=== PATIENT | female | born 1960 | race Caucasian/White ===

== ENCOUNTER 2020-09-10 17:07 | Inpatient (IN) | payer OTHER ==
[~2020-09-10] VITALS: Ht 160 cm; Wt 48.9 kg
[2020-09-10 17:11] VITALS: BP 144/102
[2020-09-10 17:51] LABS: BASOPHILS % (AUTO) 0.8 % (0.0-5.0); EOSINOPHILS % (AUTO) 3.2 % (0.0-8.0); HEMATOCRIT 48.6 % (36-48); LYMPHOCYTES % (AUTO) 21.8 % (21.0-51.0); MEAN CORPUSCULAR HEMOGLOBIN 30.6 pg (27.0-33.0); MEAN CORPUSCULAR HGB CONC 34.4 g/dL (32.0-36.0); MONOCYTES % (AUTO) 10.9 % (3.0-13.0); PLATELET COUNT (AUTO) 136 K/uL (130-400); RED BLOOD CELL COUNT(AUTO) 5.46 MIL/uL (4.00-5.50); RED CELL DISTRIBUTION WIDTH 12.2 % (11.0-15.5)
[2020-09-10 18:01] LABS: INR 1.15 (0.85-1.15); PROTHROMBIN TIME 12.4 SEC (9.6-11.6)
[2020-09-10 18:03] LABS: PARTIAL THROMBOPLASTIN TIME 24.2 SEC (26.3-35.5)
[2020-09-10 18:08] LABS: CREATININE 1.1 mg/dL (0.5-1.5); POTASSIUM 3.9 mmol/L (3.5-5.1)
[2020-09-10 18:26] VITALS: BP 150/100
[2020-09-10 18:26] LABS: B-TYPE NATRIURETIC PEPTIDE 1560 pg/mL (0-100)
[2020-09-10 18:36] LABS: ALBUMIN 3.6 g/dL (3.5-5.0); BILIRUBIN,TOTAL 0.8 mg/dL (0.2-1.0); TOTAL PROTEIN, SERUM 6.6 g/dL (6.0-8.3)
[2020-09-10 18:38] LABS: TROPONIN I 4.08 ng/mL (0.00-0.06)
[2020-09-10 19:00] VITALS: BP 150/102
[2020-09-10] MEDS ORDERED: ASPIRIN 325MG EC TAB 325 MG TABLET.DR PO SCH (19:00)
[2020-09-10 19:30] VITALS: BP 152/99
[2020-09-10] MEDS ORDERED: NITROGLYCERIN 1GM/1 INCH PACKET TD SCH (19:30)
[2020-09-10] MEDS ORDERED: SODIUM BICARB 50MEQ 50ML VIAL 50 ML ONE (19:37)
[2020-09-10] MEDS ORDERED: NICARDIPINE HCL 25 MG/10 ML ML IV ONE (19:37)
[2020-09-10] MEDS ORDERED: LIDOCAINE PF 100MG/5ML (2%) SYRINGE 5ML ONE (19:37)
[2020-09-10] MEDS ORDERED: ATROPINE SULFATE 0.1 MG/ML 10 ML SYG IVP ONE (19:37)
[2020-09-10] MEDS ORDERED: HEPARIN SODIUM 1000UNIT/ML 10ML VIAL ONE (19:38)
[2020-09-10] MEDS ORDERED: MIDAZOLAM HCL 1 MG/ML 2ML VIAL ONE (19:38)
[2020-09-10] MEDS ORDERED: IOHEXOL-350 50ML VIAL IV ONE (19:38)
[2020-09-10] MEDS ORDERED: IOHEXOL 350 MG/ML 100ML INFUS..BTL IV ONE (19:38)
[2020-09-10] MEDS ORDERED: NITROGLYCERIN 2 MG/VIAL VIAL IV ONE (19:38)
[2020-09-10] MEDS ORDERED: FENTANYL CITRATE PF 50 MCG/1 ML 2ML VIAL ONE (19:38)
[2020-09-10] MEDS ORDERED: DOPAMINE HCL 400 MG/D5%-WATER 250 ML IV ONE (19:38)
[2020-09-10] MEDS ORDERED: LIDOCAINE HCL 400MG/20ML VIAL ONE (19:38)
[2020-09-10] MEDS ORDERED: HEPARIN 25000 UNITS/250 ML D5W 250 ML IV PRN (20:00)
[2020-09-10] MEDS ORDERED: CLOPIDOGREL BISULFATE 300 MG TAB PO ONE (20:30)
[2020-09-10] MEDS ORDERED: ONDANSETRON HCL 4 MG/2 ML VIAL IV PRN (20:45)
[2020-09-10] MEDS ORDERED: FUROSEMIDE 20MG VIAL (10MG/ML) IV SCH (20:45)
[2020-09-10] MEDS ORDERED: ACETAMINOPHEN 325 MG TAB PO PRN ×2 (20:45)
[2020-09-10] MEDS ORDERED: FAMOTIDINE/PF 20 MG/2 ML VIAL IV SCH (21:00)
[2020-09-10] MEDS ORDERED: MORPHINE 2 MG SYG (2MG/1ML) IVP PRN (21:00)
[2020-09-10] MEDS ORDERED: HYDROXYZINE HCL 25 MG TABLET PO PRN (21:00)
[2020-09-10] MEDS ORDERED: CLOPIDOGREL BISULFATE 75 MG TAB ONE (21:20)
[2020-09-10] MEDS ORDERED: HEPARIN SODIUM 5000UNIT/ML 1ML VIAL ONE (21:32)
[2020-09-10] MEDS ORDERED: CLOPIDOGREL BISULFATE 300 MG TAB ONE (22:27)
[2020-09-10] MEDS: SOLU-MEDROL 40MG/ML 1ML IVP SCH (22:32)
[2020-09-10 22:45] VITALS: BP 152/99
[2020-09-10 22:50] VITALS: BP 130/77
[2020-09-10] MEDS ORDERED: IPRA3AMP24 NEB (23:05)
[2020-09-10] MEDS: IPRATROPIUM/ALBUTEROL SULFATE 3 ML SOLUTION IH SCH (23:51)
[2020-09-11] VITALS (12 sets, daily range): BP systolic 129–169; BP diastolic 64–121
[2020-09-11 04:21] LABS: HEMATOCRIT 47.6 % (36-48); MEAN CORPUSCULAR HEMOGLOBIN 30.3 pg (27.0-33.0); MEAN CORPUSCULAR HGB CONC 34.9 g/dL (32.0-36.0); MEAN CORPUSCULAR VOLUME 86.9 fL (79-99); RED BLOOD CELL COUNT(AUTO) 5.48 MIL/uL (4.00-5.50); WHITE BLOOD COUNT (AUTO) 9.1 K/uL (4.8-10.8)
[2020-09-11 04:37] LABS: ALBUMIN 3.5 g/dL (3.5-5.0); CREATININE 1.1 mg/dL (0.5-1.5); MAGNESIUM 1.8 mg/dL (1.80-2.40); POTASSIUM 3.4 mmol/L (3.5-5.1); TOTAL PROTEIN, SERUM 6.6 g/dL (6.0-8.3)
[2020-09-11] MEDS ORDERED: POTASSIUM CHLORIDE 10MEQ/100ML 10 MEQ/100 ML ML IV SCH (05:00)
[2020-09-11] MEDS: IPRATROPIUM/ALBUTEROL SULFATE 3 ML SOLUTION IH SCH (06:40)
[2020-09-11 06:47] LABS: MAGNESIUM 1.8 mg/dL (1.80-2.40)
[2020-09-11 06:52] LABS: TROPONIN I 2.54 ng/mL (0.00-0.06)
[2020-09-11] MEDS ORDERED: NITROGLYCERIN 2 MG/VIAL VIAL IV ONE (07:08)
[2020-09-11] MEDS ORDERED: NICARDIPINE HCL 25 MG/10 ML ML IV ONE (07:08)
[2020-09-11] MEDS ORDERED: HEPARIN SODIUM 1000UNIT/ML 10ML VIAL ONE (07:08)
[2020-09-11] MEDS ORDERED: IOHEXOL 350 MG/ML 100ML INFUS..BTL IV ONE (07:08)
[2020-09-11] MEDS ORDERED: IOHEXOL-350 50ML VIAL IV ONE (07:08)
[2020-09-11] MEDS ORDERED: FENTANYL CITRATE PF 50 MCG/1 ML 2ML VIAL ONE (07:09)
[2020-09-11] MEDS ORDERED: LIDOCAINE HCL 400MG/20ML VIAL ONE (07:09)
[2020-09-11] MEDS ORDERED: MIDAZOLAM HCL 1 MG/ML 2ML VIAL ONE (07:09)
[2020-09-11] MEDS ORDERED: DIGOXIN 250 MCG/ML 2ML AMP IV SCH (08:45)
[2020-09-11] MEDS ORDERED: NICOTINE 14 MG/ 24 HR PATCH TD SCH (09:00)
[2020-09-11] MEDS ORDERED: METOPROLOL SUCCINATE 50 MG TAB.SR.24H PO SCH (09:00)
[2020-09-11] MEDS ORDERED: CLOPIDOGREL BISULFATE 75 MG TAB PO SCH (09:00)
[2020-09-11] MEDS ORDERED: ASPIRIN 81MG TAB.CHEW PO SCH ×2 (09:00)
[2020-09-11] MEDS ORDERED: POTASSIUM CHLORIDE 20MEQ/100ML 100 ML IV PRN ×2 (09:30)
[2020-09-11] MEDS ORDERED: MAGNESIUM 2GM PREMIX 50ML 50 ML IV PRN (09:30)
[2020-09-11] MEDS ORDERED: POTASSIUM CHLORIDE 10% ELIXIR 20 MEQ/15 ML UDCUP PO PRN (09:30)
[2020-09-11] MEDS ORDERED: LIDOCAINE HCL-MPF 1% 2ML VIAL IV PRN ×2 (09:30)
[2020-09-11] MEDS: FUROSEMIDE 40MG VIAL (10MG/ML) IVP SCH ×2 (09:32→17:43)
[2020-09-11] MEDS: LOSARTAN 50 MG TABLET PO SCH (09:32)
[2020-09-11] MEDS: SOLU-MEDROL 40MG/ML 1ML IVP SCH (09:32)
[2020-09-11 10:10] LABS: ABG BASE EXCESS 1.1 mmol/L (-2.0-3.0); ABG HCO3 24.7 mmol/L (21.0-28.0); ABG OXYGEN SATURATION 95.4 % (95.0-99.0); ABG PCO2 36 mmHg (32-45)
[2020-09-11 10:38] LABS: APPEARANCE,URINE Clear (CLEAR); BILIRUBIN,URINE Negative (NEGATIVE); COLOR,URINE Yellow (YELLOW); GLUCOSE, URINE (UA) Negative (NEGATIVE); KETONES,URINE Negative (NEGATIVE); LEUKOCYTE ESTERASE ,URINE Negative (NEGATIVE); NITRATE,URINE Negative (NEGATIVE); OCCULT BLOOD,URINE Negative (NEGATIVE); PH,URINE 6.5 (5.0-8.0); PROTEIN,URINE Negative (NEGATIVE); UROBILINOGEN,URINE 0.2 mg/dL (0.2-1.0)
[2020-09-11 11:18] LABS: BACTERIA,URINE Rare /HPF (None Seen); RBC,URINE 0-1 /HPF (0-1); SQUAMOUS EPITHELIAL CELL,UR Rare /HPF (0-2); WBC,URINE 0-1 /HPF (0-1)
[2020-09-11] MEDS: IPRATROPIUM 0.5 MG/2.5 ML INH IH SCH ×3 (13:16→23:25)
[2020-09-11] MEDS ORDERED: GABAPENTIN 300 MG CAPSULE PO SCH (14:50)
[2020-09-11] MEDS: MILRINONE-D5W 20 MG/100 ML 100 ML IV SCH (17:43)
[2020-09-11] MEDS ORDERED: HYDROXYZINE HCL 25 MG TABLET PO SCH (22:45)
[2020-09-12 00:25] VITALS: BP 118/67
[2020-09-12] MEDS: FUROSEMIDE 40MG VIAL (10MG/ML) IVP SCH (00:47)
[2020-09-12 03:54] VITALS: BP 120/68
[2020-09-12 04:30] LABS: BASOPHILS % (AUTO) 0.3 % (0.0-5.0); EOSINOPHILS % (AUTO) 0.4 % (0.0-8.0); HEMATOCRIT 48.8 % (36-48); LYMPHOCYTES % (AUTO) 20.8 % (21.0-51.0); MEAN CORPUSCULAR HEMOGLOBIN 30.8 pg (27.0-33.0); MEAN CORPUSCULAR HGB CONC 34.4 g/dL (32.0-36.0); MEAN CORPUSCULAR VOLUME 89.5 fL (79-99); MONOCYTES % (AUTO) 9.3 % (3.0-13.0); NEUTROPHILS % (AUTO) 68.7 % (40.0-77.0); PLATELET COUNT (AUTO) 140 K/uL (130-400); RED BLOOD CELL COUNT(AUTO) 5.45 MIL/uL (4.00-5.50); RED CELL DISTRIBUTION WIDTH 12.2 % (11.0-15.5); WHITE BLOOD COUNT (AUTO) 12.8 K/uL (4.8-10.8)
[2020-09-12 04:41] LABS: HEMOGLOBIN A1C 5.8 % (4.0-6.0)
[2020-09-12 04:42] LABS: ALBUMIN 3.8 g/dL (3.5-5.0); BILIRUBIN,TOTAL 0.8 mg/dL (0.2-1.0); CREATININE 1.6 mg/dL (0.5-1.5); POTASSIUM 3.2 mmol/L (3.5-5.1); TOTAL PROTEIN, SERUM 7.2 g/dL (6.0-8.3)
[2020-09-12 04:57] LABS: B-TYPE NATRIURETIC PEPTIDE 729 pg/mL (0-100)
[2020-09-12 04:58] LABS: ABG BASE EXCESS 0.9 mmol/L (-2.0-3.0); ABG HCO3 24.4 mmol/L (21.0-28.0); ABG OXYGEN SATURATION 96.1 % (95.0-99.0); ABG PCO2 36 mmHg (32-45)
[2020-09-12] MEDS: IPRATROPIUM 0.5 MG/2.5 ML INH IH SCH (06:00)
[2020-09-12] MEDS: KCL 20 MEQ ERTAB PO PRN (06:43)
[2020-09-12] MEDS ORDERED: FENTANYL CITRATE PF 50 MCG/1 ML 2ML VIAL ONE (07:20)
[2020-09-12] MEDS ORDERED: MIDAZOLAM HCL 1 MG/ML 2ML VIAL ONE (07:20)
[2020-09-12] MEDS ORDERED: KCL 20 MEQ ERTAB PO SCH ×3 (07:32→18:00)
[2020-09-12] MEDS ORDERED: PANTOPRAZOLE SODIUM 40 MG TABLET.DR PO SCH (08:22)
[2020-09-12] MEDS ORDERED: FUROSEMIDE 20MG VIAL (10MG/ML) IV SCH (08:56)
[2020-09-12] MEDS ORDERED: DULOXETINE HCL 30 MG CAP PO SCH (09:00)
[2020-09-12] MEDS ORDERED: GABAPENTIN 300 MG CAPSULE PO SCH (09:00)
[2020-09-12] MEDS: LOSARTAN 50 MG TABLET PO SCH (09:27)
[2020-09-12] MEDS: MILRINONE-D5W 20 MG/100 ML 100 ML IV SCH (10:20)
[2020-09-12] MEDS ORDERED: LIDOCAINE 5% TOPICAL PATCH TP SCH (13:00)
== END 2020-09-12 11:48 | disposition left against medical advice (07) | DRG 281 ==
LOC: EDH 17:07 → EDHIP 17:08 → 4CH 22:08
PROVIDERS: ADMIT Internal Medicine; ATTEND Internal Medicine
PROC: 4A023N7 Measurement of Cardiac Sampling and Pressure, Left Heart, Percutaneous Approach (ICD-10-PCS; principal; 2020-09-11)
PROC: B2111ZZ Fluoroscopy of Multiple Coronary Arteries using Low Osmolar Contrast (ICD-10-PCS; 2020-09-11)
PROC: B4101ZZ Fluoroscopy of Abdominal Aorta using Low Osmolar Contrast (ICD-10-PCS; 2020-09-11)
PROC: B24BZZ4 Ultrasonography of Heart with Aorta, Transesophageal (ICD-10-PCS; 2020-09-12)
DX: I11.0 Hypertensive heart disease with heart failure (principal); I21.A1 Myocardial infarction type 2; J44.1 Chronic obstructive pulmonary disease with (acute) exacerbation; E87.2 Acidosis; J96.12 Chronic respiratory failure with hypercapnia; I50.43 Acute on chronic combined systolic (congestive) and diastolic (congestive) heart failure; F32.9 Major depressive disorder, single episode, unspecified; F41.9 Anxiety disorder, unspecified; F17.210 Nicotine dependence, cigarettes, uncomplicated; Z20.822 Contact with and (suspected) exposure to COVID-19; I35.1 Nonrheumatic aortic (valve) insufficiency; I77.810 Thoracic aortic ectasia; M79.7 Fibromyalgia; Z53.29 Procedure and treatment not carried out because of patient's decision for other reasons
CPT/HCPCS: 36415; 36600; 71045; 80053; 80061; 81001; 82550; 82803; 83036; 83735; 83874; 83880; 84484; 85025; 85027; 85378; 85610; 85730; 87426; 87635; 87804; 93005; 93306; 93313; 93356; 93458; 93567; 93880; 94010; 94640; 94664; 99152; 99153; 99156; 99157; C1769; C1894; C9803; G0378; J0461; J1160; J1265; J1644; J1940; J2001; J2250; J2260; J2920; J3010; J3490; Q9967

== ENCOUNTER → 2022-07-11 | Outpatient (CLI) | payer SELFPAY ==
[~2022-07-11] MED LIST: IPRA3AMP24 NEB
[2022-07-11 16:26] LABS: CREATININE 1.1 mg/dL (0.5-1.5); POTASSIUM 3.9 mmol/L (3.5-5.1)
== END | disposition home or self-care (01) ==
LOC: LAB 13:51
PROVIDERS: ATTEND Student in an Organized Health Care Education/Training Program
DX: I95.2 Hypotension due to drugs (principal)
CPT/HCPCS: 36415; 80048